=== PATIENT | female | born 1935 | race Caucasian/White ===

== ENCOUNTER 2023-07-20 22:29 | Inpatient (IN) | payer MEDICARE, OTHER ==
[2023-07-20] MEDS ORDERED: Ondansetron 4 MG/2 ML SDV IVPUSH ONE (22:45)
[2023-07-20] MEDS ORDERED: Sodium Chloride 0.9% 1,000 ML IV ONE (22:45)
[2023-07-20 23:13] LABS: BASOPHILS PERCENT AUTO 0.1 % (0.2-1.2); HEMATOCRIT 43.5 % (33.0-47.0); HEMOGLOBIN 14.9 g/dL (12.0-16.0); IMMATURE GRAN ABSOLUTE AUTO 0.02 x10^3/uL (0.00-0.07); LYMPHOCYTES PERCENT AUTO 3.9 % (25.0-50.0); MEAN CORPUSCULAR HEMOGLOBIN 31.2 pg (26.0-32.0); MEAN CORPUSCULAR HGB CONC 34.3 g/dL (32.0-36.0); MEAN CORPUSCULAR VOLUME 91.2 fL (78.0-93.0); MONOCYTES ABSOLUTE AUTO 0.8 x10^3/uL (0.0-0.8); MONOCYTES PERCENT AUTO 7.3 % (2.0-11.0); NEUTROPHILS PERCENT AUTO 88.5 % (50.0-80.0); PLATELET COUNT,PLT 129 x10^3/uL (130-400); RED BLOOD CELL COUNT 4.77 x10^6/uL (4.00-5.50); WHITE BLOOD CELL COUNT,WBC 11.3 x10^3/uL (4.0-10.0)
[2023-07-20 23:30] LABS: LYMPHOCYTES ABSOLUTE AUTO 0.4 x10^3/uL (1.0-4.8)
[2023-07-20 23:37] LABS: A/G RATIO 1.13; ALANINE AMINOTRANSFERASE,ALT 28 U/L (14-59); ALBUMIN 3.4 g/dL (3.4-5.0); ALKALINE PHOSPHATASE 52 U/L (46-116); ASPARTATE AMNIOTRANSFERASE,AST 48 U/L (15-37); BLOOD UREA NITROGEN,BUN 19 mg/dL (7-18); C-REACTIVE PROTEIN 0.92 mg/dL (<=0.30); CALCIUM 9.8 mg/dL (8.5-10.1); CARBON DIOXIDE,CO2 34 mmol/L (21-32); CHLORIDE,CL 94 mmol/L (98-107); CREATININE 1.2 mg/dL (0.55-1.02); GLUCOSE RANDOM 133 mg/dL (70-99); MAGNESIUM 1.7 mg/dL (1.8-2.4); POTASSIUM,K 3.6 mmol/L (3.5-5.1); PROTEIN TOTAL,TP 6.4 g/dL (6.4-8.2); SODIUM,NA 135 mmol/L (136-145)
[2023-07-20 23:40] LABS: ANION GAP 10.6 mmol/L (5-15); ESTIMATED GFR 44 mL/min (>=60)
[2023-07-20 23:41] LABS: CREATINE KINASE,CK 360 U/L (26-192)
[2023-07-21] MEDS ORDERED: Sodium Chloride 0.9% 1,000 ML IV SCH (01:00)
[2023-07-21] MEDS ORDERED: Ondansetron 4 MG/2 ML SDV IV PRN (01:00)
[2023-07-21] MEDS ORDERED: Ondansetron 4 MG Tab.DIS PO PRN (01:00)
[2023-07-21 07:35] LABS: APPEARANCE,URINE CLOUDY (CLEAR); BILIRUBIN,URINE MODERATE (NEGATIVE); COLOR,URINE AMBER (YELLOW); GLUCOSE,URINE NEGATIVE (NEGATIVE); KETONES,URINE 15 mg/dL (NEGATIVE); LEUKOCYTE ESTERASE,URINE SMALL (NEGATIVE); NITRITE,URINE NEGATIVE (NEGATIVE); OCCULT BLOOD,URINE TRACE-INTACT (NEGATIVE); PH,URINE 5.5 (5.0-8.0); PROTEIN,URINE 30 mg/dL (NEGATIVE)
[2023-07-21 07:43] LABS: AMORPHOUS SEDIMENT,URINE MODERATE; BACTERIA,URINE MANY /HPF (NOT SEEN); HYALINE CASTS,URINE FEW; MUCUS,URINE RARE /LPF (NOT SEEN); RBC,URINE 0-5 /HPF (NOT SEEN); RENAL EPITHELIAL CELLS,URINE FEW /HPF (NOT SEEN); SQUAMOUS EPITHELIAL CELLS,UR FEW /HPF (NOT SEEN)
[2023-07-21] MEDS: Furosemide 20 MG/2 ML VIAL IV SCH (09:24)
[2023-07-21] MEDS ORDERED: Nitroglycerin 0.4 MG Tab.SL SL PRN (12:33)
[2023-07-21] MEDS ORDERED: Sennosides/Docusate Sodium 50-8.6 MG Tab PO PRN (12:33)
[2023-07-21] MEDS ORDERED: VERAPAMIL 40 MG PO SCH (13:00)
[2023-07-21] MEDS ORDERED: Acetaminophen 325 MG Tab PO PRN (15:42)
[2023-07-21] MEDS: Nitrofurantoin Monohydrate/Macrocrystalline 100 MG Cap PO SCH ×2 (15:58→20:50)
[2023-07-21] MEDS ORDERED: Iopamidol 755 Mg/ML 100 ML Bottle IVPUSH ONE (17:08)
[2023-07-21] MEDS: Apixaban 2.5 MG Tab PO SCH (20:50)
[2023-07-22] MEDS ORDERED: Diltiazem 120 MG Cap.CD PO ONE (01:44)
[2023-07-22 02:05] LABS: BASOPHILS PERCENT AUTO 0.1 % (0.2-1.2); HEMATOCRIT 42.5 % (33.0-47.0); HEMOGLOBIN 13.6 g/dL (12.0-16.0); IMMATURE GRAN ABSOLUTE AUTO 0.02 x10^3/uL (0.00-0.07); LYMPHOCYTES PERCENT AUTO 3.1 % (25.0-50.0); MEAN CORPUSCULAR HEMOGLOBIN 30.8 pg (26.0-32.0); MEAN CORPUSCULAR VOLUME 96.4 fL (78.0-93.0); MONOCYTES ABSOLUTE AUTO 0.9 x10^3/uL (0.0-0.8); MONOCYTES PERCENT AUTO 7.8 % (2.0-11.0); NEUTROPHILS ABSOLUTE AUTO 10.2 x10^3/uL (1.8-7.7); NEUTROPHILS PERCENT AUTO 88.8 % (50.0-80.0); PLATELET COUNT,PLT 82 x10^3/uL (130-400); RED BLOOD CELL COUNT 4.41 x10^6/uL (4.00-5.50); WHITE BLOOD CELL COUNT,WBC 11.5 x10^3/uL (4.0-10.0)
[2023-07-22 02:24] LABS: LYMPHOCYTES ABSOLUTE AUTO 0.4 x10^3/uL (1.0-4.8)
[2023-07-22 02:29] LABS: CREATININE 1.7 mg/dL (0.55-1.02); EST CRCL DRUG DOSING (CG) 19.29 mL/min; POTASSIUM,K 4.5 mmol/L (3.5-5.1)
[2023-07-22 02:36] LABS: ANION GAP 8.5 mmol/L (5-15)
[2023-07-22] MEDS ORDERED: Digoxin 500 MCG/2 ML Amp IVPUSH ONE (02:45)
[2023-07-22] MEDS ORDERED: Digoxin 500 MCG/2 ML Amp IVPUSH SCH (02:45)
[2023-07-22] MEDS ORDERED: Diltiazem 50 MG/10 ML SDV IVPUSH ONE (04:40)
[2023-07-22] MEDS ORDERED: Amiodarone 150 MG/3 ML SDV IVPUSH ONE (07:31)
[2023-07-22] MEDS ORDERED: Amiodarone 150 MG in Dextrose 5% in Water 100 ML IV ONE ×2 (07:45)
[2023-07-22] MEDS ORDERED: AMIODARONE IVPUSH ONE ×2 (08:00)
[2023-07-22] MEDS ORDERED: WATER IVPUSH ONE ×2 (08:00)
[2023-07-22] MEDS ORDERED: DEXTROSE 5% IVPUSH ONE ×2 (08:00)
[2023-07-22 08:05] LABS: BASOPHILS PERCENT AUTO 0.1 % (0.2-1.2); HEMATOCRIT 43.1 % (33.0-47.0); IMMATURE GRAN ABSOLUTE AUTO 0.02 x10^3/uL (0.00-0.07); LYMPHOCYTES PERCENT AUTO 2.6 % (25.0-50.0); MEAN CORPUSCULAR HEMOGLOBIN 31.5 pg (26.0-32.0); MEAN CORPUSCULAR HGB CONC 32.5 g/dL (32.0-36.0); MEAN CORPUSCULAR VOLUME 97.1 fL (78.0-93.0); MONOCYTES ABSOLUTE AUTO 0.8 x10^3/uL (0.0-0.8); MONOCYTES PERCENT AUTO 6.9 % (2.0-11.0); NEUTROPHILS ABSOLUTE AUTO 10.4 x10^3/uL (1.8-7.7); NEUTROPHILS PERCENT AUTO 90.2 % (50.0-80.0); PLATELET COUNT,PLT 88 x10^3/uL (130-400); RED BLOOD CELL COUNT 4.44 x10^6/uL (4.00-5.50); WHITE BLOOD CELL COUNT,WBC 11.5 x10^3/uL (4.0-10.0)
[2023-07-22 08:49] LABS: LYMPHOCYTES ABSOLUTE AUTO 0.3 x10^3/uL (1.0-4.8)
[2023-07-22 08:56] LABS: A/G RATIO 0.97; ALBUMIN 3.2 g/dL (3.4-5.0); BILIRUBIN TOTAL 2.4 mg/dL (0.2-1.0); CALCIUM 9.4 mg/dL (8.5-10.1); CREATININE 2.1 mg/dL (0.55-1.02); EST CRCL DRUG DOSING (CG) 15.61 mL/min; POTASSIUM,K 4.5 mmol/L (3.5-5.1); PROTEIN TOTAL,TP 6.5 g/dL (6.4-8.2)
[2023-07-22 08:58] LABS: ANION GAP 14.5 mmol/L (5-15)
[2023-07-22] MEDS ORDERED: Cholecalciferol (Vitamin D3) 25 MCG Tab PO SCH (09:00)
[2023-07-22] MEDS ORDERED: Multivitamin Tab PO SCH (09:00)
[2023-07-22] MEDS ORDERED: Pravastatin 20 MG Tab PO SCH (09:00)
[2023-07-22] MEDS: Nitrofurantoin Monohydrate/Macrocrystalline 100 MG Cap PO SCH (09:14)
[2023-07-22] MEDS: Apixaban 2.5 MG Tab PO SCH (09:15)
[2023-07-22] MEDS: Furosemide 20 MG/2 ML VIAL IV SCH (09:15)
== END 2023-07-22 11:30 | disposition short-term general hospital (02) | DRG 683 ==
LOC: VM.ED 22:29 → VM.MS 23:55 → UNDOADMIN 07-21 00:15
PROVIDERS: ADMIT Nurse Practitioner Family; ATTEND Nurse Practitioner Family
DX: N17.9 Acute kidney failure, unspecified (principal); E87.1 Hypo-osmolality and hyponatremia; N30.00 Acute cystitis without hematuria; J90 Pleural effusion, not elsewhere classified; S20.419A Abrasion of unspecified back wall of thorax, initial encounter; L89.309 Pressure ulcer of unspecified buttock, unspecified stage; I48.91 Unspecified atrial fibrillation; I10 Essential (primary) hypertension; I47.19 Other supraventricular tachycardia; E78.00 Pure hypercholesterolemia, unspecified; I42.1 Obstructive hypertrophic cardiomyopathy; Z79.899 Other long term (current) drug therapy; I48.0 Paroxysmal atrial fibrillation; Y93.E1 Activity, personal bathing and showering; E78.5 Hyperlipidemia, unspecified; R77.8 Other specified abnormalities of plasma proteins; F32.A Depression, unspecified; I11.0 Hypertensive heart disease with heart failure; E86.0 Dehydration; I95.9 Hypotension, unspecified; I25.10 Atherosclerotic heart disease of native coronary artery without angina pectoris; I50.9 Heart failure, unspecified; Z95.0 Presence of cardiac pacemaker; Z79.01 Long term (current) use of anticoagulants; Z98.42 Cataract extraction status, left eye; Z98.41 Cataract extraction status, right eye; Z90.49 Acquired absence of other specified parts of digestive tract; Z90.710 Acquired absence of both cervix and uterus; Z98.51 Tubal ligation status; W18.2XXA Fall in (into) shower or empty bathtub, initial encounter; Y92.002 Bathroom of unspecified non-institutional (private) residence as the place of occurrence of the external cause
CPT/HCPCS: 71045; 80053; 82550; 83735; 83880; 84484; 85025; 86140; 93005; 96361; 96374; 99285; J2405; J7030; 36415; 71275; 80048; 81001; 87086; 87088; A9270-GY; J0282; J1160; J1940; J7060; Q9967